=== PATIENT | female | born 1975 | race Two or more races ===

== ENCOUNTER 2017-01-24 10:06 | Inpatient (IN) ==
[2017-01-24 10:43] LABS: Apearance,Urine Slightly Hazy (Clear); Bilirubin,Urine Negative (Negative); Blood, Urine Large mg/dL (Negative); Glucose,Urine (UA) Negative (Negative); Ketones,Urine Negative (Negative); Mucus,Urine Few /LPF (Occasional); Nitrite,Urine Negative (Negative); Protein,Urine 30 MG/DL; RBC,Urine 3 /HPF (0-4); Squamous Epithelial Cell,Urine Few /HPF (0-10); Urine Color Yellow (Yellow); Urine Specific Gravity 1.017 (1.001-1.035); WBC,Urine 3 /HPF (0-6)
--- NOTE | 2017-01-24 11:05 | Emergency Department Note ---
Arrival - Arrival Chief Complaint: Abdominal / Flank Pain Stated Complaint: left abdominal pain-vomiting,headache ED Nursing Triage Note: PT C/O PAIN TO LLQ THAT RADIATES TO HER GROIN. PT REPORTS VAGINAL BLEEDING SINCE JULY. +VOMITING. PT SPEAKS [place], DIFFICULT TO OBTAIN HISTORY. Mode of Arrival: Ambulatory Limitations: Language Barrier Source: Patient, Significant other, RN Notes Reviewed Time Seen by Provider: 01/24/17 10:15 - History of Present Illness HPI Narrative: - History of Present Illness 41-year-old female presents to ED with: MD Complaint: abdominal pain left lower quadrant, vaginal bleeding 5 minutes, vomiting. Onset (ago): Vaginal bleeding started in July, pain and vomiting started last Location: Left lower quadrant with radiation into left groin Context: History similar episodes Associated Symp: Anorexia History Limited due to language barrier Date of Last Menstrual Period: IRREG Allergies/Adverse Reactions: Allergies Allergy/AdvReac Type Severity Reaction Status Date / Time No Known Allergies Allergy Verified 01/24/17 10:17 Home Medications: Home Medications Medication Instructions Recorded Confirmed Type No Known Home Medications [No 01/24/17 01/24/17 History Known Home Medications] Review of System - Review of System 12 point system: reviewed and no additional remarkable complaints except as stated - Review of System Gastrointestinal: Present: abdominal pain, vomiting Genitourinary female: Present: abnormal menses Medical,Surgical,& Family Hx - Surgical History Abdominal Surgeries: Surgical HX of: Cholecystectomy - Social History Smoking Status: Never smoker Frequency of Alcohol Use: None Type of Drug Use: None Exam Physical Examination: - General General appearance: alert, in no apparent distress - Head Head exam: Present: atraumatic, normocephalic, normal inspection - Eye Eye exam: Present: normal appearance, PERRL, EOMI - Neck Neck exam: Present: normal inspection, full ROM - Chest Chest inspection: Present: normal inspection, symmetric chest wall rise - Respiratory Respiratory exam: Present: normal lung sounds bilaterally - Cardiovascular Cardiovascular exam: Present: regular rate, normal rhythm, normal heart sounds - Abdominal Exam Abdominal exam: Present: soft, tenderness (left lower quadrant, mild to moderate palpation), normal bowel sounds. Absent: distention, guarding, organomegaly, trauma, psoas sign, heel tap sign, Restrepo's sign, mass - Rectal Exam Rectal exam: Present: deferred - Female exam ED: Present: external exam, minimal to moderate bleeding, no clots, no abnormalities - Extremities Exam Extremities exam: Present: normal inspection, full ROM. Absent: pedal edema, joint swelling, calf tenderness - Psychiatric Psychiatric exam: Present: normal affect, normal mood Vital Signs: Vital Signs Temperature 98.8 F 01/24/17 10:26 Pulse Rate 92 H 01/24/17 10:26 Respiratory Rate 16 01/24/17 10:26 Blood Pressure 101/66 01/24/17 10:26 O2 Sat by Pulse Oximetry 100 01/24/17 10:13 Course Course Narrative: After obtaining History and Physical (limited due to language barrier), nurse was able to obtain information that pt was seen by Dr. Walker in office about 2 weeks ago. His office was called and asked for records and ultrasound report. Ultrasound report from office shows: 1.3cm uterine fibroid and Left ovarian cyst. - Reevaluation(s) Time: 11:00 (External exam performed. Minimal to moderate bleeding present, no blood clots noted. No abnormalities noted.) Time: 14:00 (Patient updated on plan of care.) - Consultations Time: 13:45 (Dr. Walker notified of patient presence and status. Will admit and administer blood. Orders received.) Results - Labs CBC & BMP: 01/24/17 11:02 01/24/17 11:02 Lab Results: I have reviewed the patients labs Labs: Laboratory Tests 01/24/17 01/24/17 10:31 10:31 Urine Color Yellow Urine Appearance Slightly hazy Urine pH 5.0 Ur Specific Glidden 1.017 Urine Protein 30 Urine Glucose (UA) Negative Urine Ketones Negative Urine Blood Large Urine Nitrate Negative Urine Bilirubin Negative Urine Urobilinogen 4.0 H Urine Leukocytes Trace Urine RBC 3 Urine WBC 3 Ur Squamous Epith Cells Few Urine Mucus Few Ur Culture Indicated? Not indicated Urine Test Negative Disposition Clinical Impression: Abdominal pain, Abnormal vaginal bleeding Case discussed with: patient, patient's family Disposition: Still a Patient Condition: Guarded Time of Disposition: 13:45 (Admitted to Dr. Walker.)
[2017-01-24] MEDS ORDERED: SODIUM CHLORIDE 0.9% 1,000 ML IV STA (11:25)
[2017-01-24] MEDS ORDERED: ONDANSETRON 4 MG/2 ML VIAL IV ONE (11:25)
[2017-01-24] MEDS ORDERED: ONDANSETRON 4 MG/2 ML VIAL ONE (11:28)
[2017-01-24 11:30] LABS: Basophils % 0.3 % (0.0-0.8); Eosinophils # 0.1 10*3/uL (0.0-0.87); Hematocrit 24.2 VOL% (35.7-47.0); Immature Granulocytes % 0.6 %; Immature Granulocytes Absolute 0.04 #; Lymphocytes # 2.2 10*3/uL (1.4-4.0); Lymphocytes % 31.7 % (21.3-54.2); Mean Corpuscular HGB Conc 27.7 GM/DL (32-36); Mean Corpuscular Hemoglobin 18 PG (27-34); Mean Corpuscular Volume 63.2 FL (87-102); Mean Platelet Volume 8.8 FL (9.6-12.0); Monocytes # 0.7 10*3/uL (0.11-0.8); Monocytes % 10.1 % (1.7-12.7); NRBC # 0.02 10*3/uL; Neutrophils # 3.8 10*3/uL (1.4-7.4); Neutrophils % 55.3 % (38.7-73.9); Platelet Count 428 T/CUMM (130-400); Red Blood Count 3.83 MC/CUMM (3.8-5.5); Red Cell Distribution Width 17.4 % (9.3-17.3); White Blood Count 6.9 T/CUMM (4-12)
[2017-01-24 11:31] LABS: Hemoglobin 6.7 GM/DL (12.0-16.0)
[2017-01-24 11:33] LABS: Albumin 3.2 G/DL (3.4-5.0); Bilirubin,Total 0.7 MG/DL (0.2-1.0); Calcium 8.1 MG/DL (8.5-10.1); Osmolality,Calculated 278.4 MOS/KG (273-304); Potassium 3.8 MMOL/L (3.5-5.1); Total Protein 6.6 G/DL (6.4-8.3)
[2017-01-24 12:16] LABS: Elliptocytes Few; Hypochromasia 1+; Microcytosis 1+
[2017-01-24] MEDS ORDERED: SODIUM CHLORIDE 0.9% 250 ML IV PRN (13:52)
[2017-01-24] MEDS ORDERED: ACETAMINOPHEN 325 MG TABLET PO PRN (13:55)
[2017-01-24] MEDS ORDERED: MAGNESIUM HYDROXIDE SUSP 30 ML UDCUP PO PRN (13:55)
[2017-01-24] MEDS ORDERED: BISACODYL 10 MG SUPP RECTAL PRN (13:55)
[2017-01-24] MEDS ORDERED: IBUPROFEN 800 MG TABLET PO PRN (13:55)
[2017-01-24] MEDS ORDERED: oxyCODONE/ACETAMINOPHEN 5-325 MG TABLET PO PRN (16:00)
[2017-01-24] MEDS ORDERED: oxyCODONE/ACETAMINOPHEN 5-325 MG TABLET ONE (16:02)
[2017-01-24] MEDS ORDERED: SODIUM CHLORIDE 0.9% 1,000 ML IV PRN (16:14)
[2017-01-24] MEDS: LACTATED RINGERS 1,000 ML IV SCH (16:24)
[2017-01-24] MEDS: ONDANSETRON 4 MG/2 ML VIAL IV PRN (18:20)
[2017-01-24] MEDS ORDERED: MEPERIDINE 25 MG/1 ML VIAL IV PRN (18:48)
[2017-01-24] MEDS ORDERED: PROMETHAZINE 25 MG/1 ML VIAL ONE (18:56)
--- NOTE | 2017-01-24 18:58 | OB/GYN History & Physical ---
History of Present Illness Chief complaint: Dysmenorrhea, anemia, emesis History of present illness: Ms. Diaz is a 41 year old female 41-year-old female with known history of uterine fibroids, disc menorrhea, dysfunctional uterine bleeding, and pelvic pain. Admitted through the emergency room with nausea vomiting, her H&H in the admission was 6 and 24. Patient at this time is admitted for IV fluids transfusion of packed RBCs, and analgesic. Risks benefits were thoroughly discussed patient is in full agreement Home Medications Medication Instructions Recorded Confirmed Type No Known Home Medications [No 01/24/17 01/24/17 History Known Home Medications] Allergies Allergy/AdvReac Type Severity Reaction Status Date / Time No Known Allergies Allergy Verified 01/24/17 10:17 Medical,Surgical,& Family Hx - Medical History Psychological: History of: Anxiety Disorders, Depression Reproductive: History of: Reproductive Problems (DUB) - Surgical History Abdominal Surgeries: Surgical HX of: Cholecystectomy Reproductive Surgeries: Surgical HX of;: Section - Family History Family History: Reports;: Family Diabetes (father), Family Psychiatric Problems (mother- anxiety and depression) - Social History Smoking Status: Never smoker Frequency of Alcohol Use: None 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 - Constitutional Vitals: Vital Signs Temp Pulse Pulse Resp BP BP Pulse Ox 01/24/17 18:49 96.3 F L 76 20 95/61 99 01/24/17 18:42 97.6 F 77 20 110/66 99 01/24/17 17:57 97.2 F L 74 18 107/73 100 01/24/17 16:57 97.6 F 83 20 97/54 99 01/24/17 16:27 96.8 F L 86 20 97/60 100 01/24/17 16:22 96.8 F L 84 20 103/64 100 01/24/17 16:17 97.5 F L 82 20 100/57 100 01/24/17 16:10 96.5 F L 82 20 101/61 98 01/24/17 14:45 97.4 F L 81 20 98/57 01/24/17 10:26 98.8 F 92 H 16 101/66 01/24/17 10:13 98.8 F 92 H 16 101/66 100 Pulse Ox 01/24/17 18:49 01/24/17 18:42 01/24/17 17:57 01/24/17 16:57 01/24/17 16:27 01/24/17 16:22 01/24/17 16:17 01/24/17 16:10 01/24/17 14:45 100 01/24/17 10:26 01/24/17 10:13 General appearance: no acute distress - Head Head exam: Present: normal inspection - Eye Eye exam: Present: EOMI Pupils: Present: WEST - ENT ENT exam: Present: normal exam - Neck Neck exam: Present: normal inspection - Respiratory Respiratory exam: Present: clear to auscultation bilaterally - Breast Breasts: as per HPI Menstruation: as per HPI - Cardiovascular Cardiovascular exam: Present: regular rate and rhythm - GI/Abdominal GI/Abdominal exam: Present: normal bowel sounds, tenderness, soft - Extremities Exam Extremities exam: Present: normal inspection - Back Exam Back exam: Present: normal inspection - Neurological Exam Neurological exam: Present: alert - Psychiatric Psychiatric exam: Present: normal affect - Skin Skin exam: Present: normal color Assessment and Plan (1) Anemia Status: Acute Current Visit: Yes (2) Dysfunctional uterine bleeding Status: Acute Current Visit: Yes (3) Uterine fibroid Status: Acute Assessment and plan: We will address the anemia, discomfort, possibility of a SERENITY/BSO in the future. Current Visit: Yes Results - Labs CBC & BMP: 01/24/17 11:02 01/24/17 11:02
[2017-01-24] MEDS ORDERED: PROMETHAZINE 25 MG/1 ML VIAL IM PRN (19:00)
[2017-01-24] MEDS: DOCUSATE SODIUM 100 MG CAPSULE PO SCH (20:59)
[2017-01-25] MEDS: LACTATED RINGERS 1,000 ML IV SCH ×2 (00:33→11:03)
[2017-01-25 01:30] LABS: Hematocrit 30.8 VOL% (35.7-47.0); Hemoglobin 9.2 GM/DL (12.0-16.0)
[2017-01-25] MEDS: ONDANSETRON 4 MG/2 ML VIAL IV PRN (08:24)
[2017-01-25] MEDS: DOCUSATE SODIUM 100 MG CAPSULE PO SCH ×2 (08:41→20:50)
[2017-01-25] MEDS ORDERED: SODIUM CHLORIDE 0.9% 250 ML IV PRN (14:33)
--- NOTE | 2017-01-25 19:14 | Progress Note ---
Assessment and Plan (1) Anemia Status: Acute Current Visit: Yes (2) Dysfunctional uterine bleeding Status: Acute Current Visit: Yes (3) Uterine fibroid Status: Acute Assessment and plan: We will address the anemia, discomfort, possibility of a SERENITY/BSO in the future. Current Visit: Yes Family Medicine PN Sub Interval history: Second day after receiving transfusion of packed RBCs. Patient received a total of 4 units. Patient is more alert energetic, she does complain of abdominal discomfort approximately a 5 on a 10 scale. Vaginal bleeding is minimal. We will continue to observe over the next 24 hours. Possibility of discharge and have this patient return to for a total abdominal hysterectomy. Risks benefits were thoroughly discussed and she is in full agreement. Exam (Progress Note) - Constitutional Vitals: Period Temp Pulse Resp BP Sys/Ramos Pulse Ox Last 24 Hr 96.5 F-98.5 F 65-93 18-20 90-111/53-79 96-100 Results - Labs CBC & BMP: 01/25/17 01:23 01/24/17 11:02 Specialty Discharge - Follow Up or Referrals
[2017-01-25] MEDS ORDERED: MEPERIDINE 50 MG/1 ML VIAL IV PRN (19:53)
[2017-01-25] MEDS: FERROUS SULFATE 325 MG TABLET PO SCH (20:50)
[2017-01-25 21:01] LABS: Basophils % 0.5 % (0.0-0.8); Eosinophils # 0.2 10*3/uL (0.0-0.87); Eosinophils % 2.6 % (0.00-10.9); Hematocrit 33.2 VOL% (35.7-47.0); Hemoglobin 10.1 GM/DL (12.0-16.0); Immature Granulocytes % 0.2 %; Immature Granulocytes Absolute 0.02 #; Lymphocytes # 2.4 10*3/uL (1.4-4.0); Lymphocytes % 27.9 % (21.3-54.2); Mean Corpuscular HGB Conc 30.4 GM/DL (32-36); Mean Corpuscular Hemoglobin 22 PG (27-34); Mean Corpuscular Volume 71.1 FL (87-102); Mean Platelet Volume 8.8 FL (9.6-12.0); Monocytes # 0.9 10*3/uL (0.11-0.8); Monocytes % 10.6 % (1.7-12.7); NRBC # 0.02 10*3/uL; Neutrophils % 58.2 % (38.7-73.9); Platelet Count 333 T/CUMM (130-400); Red Blood Count 4.67 MC/CUMM (3.8-5.5); Red Cell Distribution Width 22.5 % (9.3-17.3); White Blood Count 8.5 T/CUMM (4-12)
[2017-01-26] MEDS: DOCUSATE SODIUM 100 MG CAPSULE PO SCH (10:04)
[2017-01-26] MEDS: FERROUS SULFATE 325 MG TABLET PO SCH (10:04)
[2017-01-26 11:44] VITALS: BP 104/64
--- NOTE | 2017-01-26 14:22 | Discharge Summary ---
Hospital Course - Hospital Course Hospital Course: Patient admitted with anemia and severe abdominal pain and discomfort. This is her third hospital day. She will be discharged today and follow my office in approximately 1 week where at that point time she will make some arrangements to be scheduled for SERENITY and BSO secondary to uterine fibroids, abdominal pain, and also dysfunction bleeding. She will be discharged with Percocet as well as iron therapy Diagnosis - Discharge Diagnosis (1) Anemia Status: Acute (2) Dysfunctional uterine bleeding Status: Acute (3) Uterine fibroid Status: Acute Specialty Discharge - Follow Up or Referrals Follow up with: Germán Walker MD [Physician] - 02/01/17 2:45 pm Discharge Plan - Discharge Data Condition at Discharge: Stable Discharge Diet: advance to your usual diet Activity: resume usual activities as tolerated, no lifting Hygiene: may shower, may tub bathe Driving: no restrictions Contact your physician if you experience:: fever over 101, Shortness of breath, Bleeding - Discharge Medications New Ferrous Sulfate Tab [Feosol Original Tab] 325 mg PO BID #60 tablet oxyCODONE/ACETAMINOPHEN 5-325 [Percocet 5-325] 2 tablet PO Q6H PRN #30 tablet PRN Reason: Pain Moderate (4-7) - Follow Up or Referral Follow Up: Germán Walker MD [Physician] - 1 Week - Forms/Instructions Instructions: Dysfunctional Uterine Bleeding (DC) Exam - Constitutional Vitals: Period Temp Pulse Resp BP Sys/Ramos Pulse Ox Last 24 Hr 96.7 F-98.0 F 64-93 16-20 91-111/52-79 95-100 Discharge Results Labs on day of discharge: Labs from last 24 hours 01/25/17 01/25/17 01/24/17 Unknown 20:55 13:52 WBC 8.5 RBC 4.67 D Hgb 10.1 L Hct 33.2 L MCV 71.1 L MCH 22 L MCHC 30.4 L RDW 22.5 H Plt Count 333 D MPV 8.8 L Neut % (Auto) 58.2 Lymph % (Auto) 27.9 Maverick % (Auto) 10.6 Eos % (Auto) 2.6 Baso % (Auto) 0.5 Neut # (Auto) 5.0 Lymph # (Auto) 2.4 Maverick # (Auto) 0.9 H Eos # (Auto) 0.2 Baso # (Auto) 0.0 Immature Gran % 0.2 Nucleated RBC % 0.2 Immature Gran # 0.02 Nucleated RBCs # 0.02 Blood Type Cancelled Antibody Screen Cancelled Crossmatch See Detail See Detail Blood Bank Comment Cancelled DS: Provider Date of admission: 01/24/17 13:55 Primary care physician: . No PCP Attending physician on admission: Germán Walker MD Consults: 01/24/17 13:55 Consult to Case Mgmt/Social Srvs [CONS] Routine Reason for Case Mgmt/Social Srvs: Other Consult Comment: no insurance 01/24/17 16:17 Consult to Dietitian [CONS] Routine Reason for Dietitian: Other Consult Comment: lost weight- admission assessment question Discharging clinician: Germán Walker MD
== END 2017-01-26 14:50 | disposition home or self-care (01) | DRG 812 ==
LOC: N.ED 10:06 → N.EDINP 13:44 → N.OB 14:28
PROVIDERS: ADMIT Obstetrics & Gynecology; ATTEND Obstetrics & Gynecology

== ENCOUNTER 2017-02-05 13:53 | Inpatient (IN) ==
[2017-02-05] MEDS ORDERED: ONDANSETRON 4 MG/2 ML VIAL IV PRN (14:27)
[2017-02-05] MEDS ORDERED: oxyCODONE/ACETAMINOPHEN 5-325 MG TABLET PO PRN (14:27)
[2017-02-05] MEDS ORDERED: MEPERIDINE 50 MG/1 ML VIAL IV PRN (14:27)
[2017-02-05] MEDS: SODIUM CHLORIDE 0.9% 1,000 ML IV SCH ×2 (15:05→23:46)
[2017-02-05 15:16] LABS: Basophils # 0.1 10*3/uL (0.0-0.2); Basophils % 0.9 % (0.0-0.8); Eosinophils # 0.2 10*3/uL (0.0-0.87); Eosinophils % 2.9 % (0.00-10.9); Hematocrit 33.9 VOL% (35.7-47.0); Hemoglobin 10.2 GM/DL (12.0-16.0); Immature Granulocytes % 0.4 %; Immature Granulocytes Absolute 0.03 #; Lymphocytes # 2.8 10*3/uL (1.4-4.0); Lymphocytes % 40.5 % (21.3-54.2); Mean Corpuscular HGB Conc 30.1 GM/DL (32-36); Mean Corpuscular Hemoglobin 22 PG (27-34); Mean Corpuscular Volume 73.5 FL (87-102); Mean Platelet Volume 9.5 FL (9.6-12.0); Monocytes # 0.7 10*3/uL (0.11-0.8); Monocytes % 9.6 % (1.7-12.7); Neutrophils # 3.2 10*3/uL (1.4-7.4); Neutrophils % 45.7 % (38.7-73.9); Platelet Count 338 T/CUMM (130-400); Red Blood Count 4.61 MC/CUMM (3.8-5.5); Red Cell Distribution Width 24.7 % (9.3-17.3)
[2017-02-05 15:49] LABS: Albumin 3.2 G/DL (3.4-5.0); Bilirubin,Total 0.6 MG/DL (0.2-1.0); Calcium 8.2 MG/DL (8.5-10.1); Osmolality,Calculated 282.1 MOS/KG (273-304); Potassium 3.6 MMOL/L (3.5-5.1); Total Protein 6.4 G/DL (6.4-8.3)
--- NOTE | 2017-02-05 17:45 | OB/GYN History & Physical ---
History of Present Illness Chief complaint: D UB History of present illness: Ms. Diaz is a 41 year old female 41-year-old female most recently discharged from the hospital with severe anemia. Patient patient received approximately 4 units of packed RBCs. Ultrasound of the pelvis demonstrated multiple uterine fibroids. Since her discharge from the hospital over the last week this patient's continued to bleed and have increasing abdominal pain and discomfort. Patient is complaining of weakness, abdominal pain, and nausea with associated emesis. In light of this continued multiple symptoms of pain, dysfunction bleeding, known uterine fibroids, and anemia she is being prepared for SERENITY and BSO. Risks and benefits were thoroughly discussed and she is in full agreement. Home Medications Medication Instructions Recorded Confirmed Type Ferrous Sulfate Tab [Feosol 325 mg PO BID #60 tablet 01/26/17 02/05/17 Rx Original Tab] oxyCODONE/ACETAMINOPHEN 5-325 2 tablet PO Q6H PRN #30 tablet 01/26/17 02/05/17 Rx [Percocet 5-325] Allergies Allergy/AdvReac Type Severity Reaction Status Date / Time No Known Allergies Allergy Verified 01/24/17 10:17 Medical,Surgical,& Family Hx - Medical History Psychological: History of: Anxiety Disorders, Depression Reproductive: History of: Reproductive Problems (DUB) - Surgical History Abdominal Surgeries: Surgical HX of: Cholecystectomy Reproductive Surgeries: Surgical HX of;: Section - Family History Family History: Reports;: Family Diabetes (father), Family Psychiatric Problems (mother- anxiety and depression) - Social History Smoking Status: Never smoker 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 - Constitutional Vitals: Vital Signs Temp Pulse Resp BP Pulse Ox 02/05/17 16:00 97.4 F L 83 18 93/59 99 02/05/17 14:15 97.5 F L 86 18 94/61 99 General appearance: mild distress - Head Head exam: Present: normal inspection - Eye Eye exam: Present: EOMI Pupils: Present: WEST - ENT ENT exam: Present: normal exam - Neck Neck exam: Present: normal inspection - Respiratory Respiratory exam: Present: clear to auscultation bilaterally - Breast Breasts: as per HPI Menstruation: as per HPI - Cardiovascular Cardiovascular exam: Present: regular rate and rhythm, tachycardia - GI/Abdominal GI/Abdominal exam: Present: tenderness, other (Palpable enlargement with associated tenderness) - Extremities Exam Extremities exam: Present: normal inspection - Back Exam Back exam: Present: normal inspection - Neurological Exam Neurological exam: Present: alert, oriented X3 - Psychiatric Psychiatric exam: Present: agitated, anxious - Skin Skin exam: Present: normal color Assessment and Plan (1) Anemia Status: Acute Current Visit: No (2) Uterine fibroid Status: Acute Current Visit: No (3) Dysfunctional uterine bleeding Status: Acute Current Visit: No (4) Abdominal pain Status: Acute Assessment and plan: Dysfunction uterine bleeding, pelvic pain, anemia, known uterine fibroids, will plan on a SERENITY/BSO risks benefits were thoroughly discussed patient full agreement. Current Visit: No Results - Labs CBC & BMP: 02/05/17 14:40 02/05/17 14:40
[2017-02-05] MEDS ORDERED: ceFAZolin 2,000 MG in PREMIX 1 EACH IV ONE (17:49)
--- NOTE | 2017-02-05 18:41 | XRay Report ---
Exam: XR chest 2V Date: 02/05/2017 5:49 PM Indication: Respiratory evaluation Preop hysterectomy Comparison: None Technical: PA lateral Findings: Heart is normal in size. No obvious infiltrate. Mild interstitial thickening the perihilar regions. No defined effusions. The bony structures reveal anterolateral marginal osteophytes. Prior cholecystectomy clips are present. Impression: 1. Mild interstitial thickening in the perihilar regions without consolidating infiltrate 2. Previous cholecystectomy. PROCEDURE INTERPRETED AT [facility] DEPARTMENT OF RADIOLOGY Final Report Signed by: Dr. Anthony Davila
[2017-02-05 19:46] LABS: Poikilocytosis 1+
[2017-02-05 19:47] LABS: Hypochromasia 1+; Ovalocytes Few; Platelet Estimate Normal; Tear Drop Cells Few
[2017-02-06] MEDS ORDERED: MICROFIBRILLAR COLLAGEN POWDER 1 GM CAN TOP ONE (06:42)
[2017-02-06] MEDS ORDERED: ceFAZolin 2,000 MG in PREMIX 1 EACH IV ONE (07:00)
--- NOTE | 2017-02-06 07:18 | EKG Report ---
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
[2017-02-06] MEDS ORDERED: LACTATED RINGERS 1,000 ML IV SCH (08:30)
--- NOTE | 2017-02-06 11:03 | Operative Note ---
Date of procedure: 02/06/17 Procedure: Preoperative diagnosis; anemia, dysfunction uterine bleeding, severe pelvic pain , ovarian cyst Postoperative diagnosis: Same, severe pelvic adhesion Anesthesia: General. endotracheal anesthesia Estimated blood loss: [] 300 cc Surgeon: Dr. Walker Findings: [] Pelvic adhesions, omental adhesions, uterine ovarian adhesions, 6 cm ovarian cyst, uterine fibroids Procedure: SERENITY/BSO, lysis of adhesions The risks benefits and indications and alternatives the procedure were reviewed with the patient and informed consent was obtained. The patient was taken to the operating room with IV running and a Glover catheter in place. Patient was placed in supine position, given general anesthesia, prepped and draped in the usual sterile fashion. An abdominal incision was made approximately 2 cm above the symphysis pubis and extended sharply to the rectus fascia. The fascia was then excised bilaterally with the curved Cooper scissors. And the muscles of the anterior abdominal wall were in the midline by sharp and blunt dissection. Peritoneum was grasped between 2 pickups, elevated and entered sharply with the scalpel. The pelvis was examined with the findings noted above. A abdominal retractor was placed into the incision and the bowel packed away with moist laparotomy sponges. [] A tenaculum was placed on the cornea and used for retraction. The round ligaments on both sides were clamped, transected and suture ligated with 0 Vicryl the anterior leaf of the broad ligament was incised along the bladder was reflection to the midline from both sides. The bladder was then gently dissected off the lower uterine segment and the cervix with a sponge stick. The infundibulopelvic ligaments on both sides were then doubly clamped, transected and suture ligated with 0 Vicryl. Hemostasis was visualized. The uterine arteries were skeletonized bilaterally, clamped with Amarjit clamps, transected and suture ligated with 0 Vicryl and, hemostasis was assured. The uterosacral ligament were clamped on both sides, transected, and suture ligated in a similar fashion the cervix and uterus were amputated with cautery. The vaginal cuff angles were closed with [id number] stitches of 0 Vicryl and were transfixed to the ipsilateral cardinal and uterosacral ligaments. The remainder of the vaginal cuff was closed with a series of interrupted 0 Vicryl [id number] sutures hemostasis was assured. The ureters were identified bilaterally were well within normal limits the pelvis was irrigated copiously with warm normal saline. All laparotomy sponges and instruments were removed from the abdomen. The fascia was closed with running 0 Vicryl, and hemostasis was assured the skin was closed with moriah. Sponges, lap, needle and instrument counts were correct -2. The patient was extubated in the operating room was taken to the PAC unit, awake and in stable condition.. Surgeon / Physician: Germán Walker Results - Labs CBC & BMP: 02/05/17 14:40 02/05/17 14:40 Discharge Plan - Discharge Medications No Action Ferrous Sulfate Tab [Feosol Original Tab] 325 mg PO BID #60 tablet oxyCODONE/ACETAMINOPHEN 5-325 [Percocet 5-325] 2 tablet PO Q6H PRN #30 tablet PRN Reason: Pain Moderate (4-7) - Follow Up or Referral - Forms/Instructions
[2017-02-06] MEDS ORDERED: ACETAMINOPHEN 325 MG TABLET PO PRN (11:04)
[2017-02-06] MEDS ORDERED: BISACODYL 10 MG SUPP RECTAL PRN (11:04)
[2017-02-06] MEDS ORDERED: BENZOCAINE/MENTHOL LOZENGE 18/BOX PO PRN (11:04)
[2017-02-06] MEDS ORDERED: MEPERIDINE 50 MG/1 ML VIAL IV PRN (11:06)
[2017-02-06] MEDS: HYDROmorphone 2 MG/1 ML VIAL IV PRN ×4 (11:24→11:49)
[2017-02-06] MEDS ORDERED: ONDANSETRON 4 MG/2 ML VIAL ONE ×2 (11:25→11:28)
[2017-02-06] MEDS ORDERED: HYDROmorphone 2 MG/1 ML VIAL ONE ×2 (11:25→12:47)
[2017-02-06 11:26] LABS: Apearance,Urine CLEAR (Clear); Bacteria,Urine Occasional /HPF (Few); Bilirubin,Urine Negative (Negative); Blood, Urine Negative (Negative); Glucose,Urine (UA) Negative (Negative); Ketones,Urine Negative (Negative); Mucus,Urine Occasional /LPF (Occasional); Nitrite,Urine Negative (Negative); Protein,Urine Negative; RBC,Urine 1 /HPF (0-4); Squamous Epithelial Cell,Urine Occasional /HPF (0-10); Urine Color Yellow (Yellow); Urine Specific Gravity 1.012 (1.001-1.035); Urine Urobilinogen < 2.0 EU/DL (0.2-1.0); WBC,Urine <1 /HPF (0-6)
[2017-02-06] MEDS ORDERED: LIDOCAINE 2% TOP JELLY 5 ML TUBE TOP ONE (11:27)
[2017-02-06] MEDS ORDERED: PROPOFOL 200 MG/20 ML VIAL IV ONE (11:27)
[2017-02-06] MEDS ORDERED: ACETAMINOPHEN 1,000 MG/100 ML VIAL IV ONE (11:28)
[2017-02-06] MEDS ORDERED: KETOROLAC 30 MG/1 ML VIAL ONE (11:28)
[2017-02-06] MEDS ORDERED: MIDAZOLAM 2 MG/2 ML VIAL ONE (11:28)
[2017-02-06] MEDS ORDERED: GLYCOPYRROLATE 0.4 MG/2 ML VIAL ONE (11:28)
[2017-02-06] MEDS ORDERED: NEOSTIGMINE 10 MG/10 ML VIAL ONE (11:28)
[2017-02-06] MEDS ORDERED: SEVOFLURANE 1 UNIT/15 MINUTE INH ONE (11:29)
[2017-02-06] MEDS ORDERED: ROCURONIUM 100 MG/10 ML VIAL IV ONE (11:29)
[2017-02-06] MEDS ORDERED: LACTATED RINGERS 1,000 ML IV ONE (11:29)
[2017-02-06] MEDS ORDERED: ONDANSETRON 4 MG/2 ML VIAL IV PRN (11:37)
--- NOTE | 2017-02-06 12:16 | Anesthesia Post-Op ---
Anesthesia Post OP - Post Ansesthetic Evaluation Patient seen in post op: Yes Resp: within normal limits CV: within normal limits Mental: within normal limits Temp: within normal limits [id number]: within normal limits Nausea and Vomiting: within normal limits Pain: within normal limits
[2017-02-06] MEDS ORDERED: HYDROmorphone 2 MG/1 ML VIAL IV PRN (12:37)
[2017-02-06] MEDS ORDERED: HYDROmorphone 2 MG/1 ML VIAL IV ONE (12:43)
[2017-02-06] MEDS ORDERED: NALOXONE 0.4 MG/ML VIAL IV PRN (13:55)
[2017-02-06] MEDS ORDERED: HYDROmorphone PCA 30 MG/30 ML SYRINGE IV SCH (14:00)
[2017-02-06] MEDS: ONDANSETRON 4 MG/2 ML VIAL IV PRN (17:05)
[2017-02-06] MEDS: PROMETHAZINE 25 MG/1 ML VIAL IM PRN (17:55)
[2017-02-06] MEDS: LACTATED RINGERS 1,000 ML IV SCH (18:51)
[2017-02-06 20:02] LABS: Basophils % 0.2 % (0.0-0.8); Hematocrit 30.7 VOL% (35.7-47.0); Hemoglobin 9.3 GM/DL (12.0-16.0); Immature Granulocytes % 0.5 %; Immature Granulocytes Absolute 0.08 #; Lymphocytes # 0.7 10*3/uL (1.4-4.0); Lymphocytes % 4.1 % (21.3-54.2); Mean Corpuscular HGB Conc 30.3 GM/DL (32-36); Mean Corpuscular Hemoglobin 23 PG (27-34); Mean Corpuscular Volume 74.5 FL (87-102); Mean Platelet Volume 9.7 FL (9.6-12.0); Monocytes # 0.9 10*3/uL (0.11-0.8); Monocytes % 5.2 % (1.7-12.7); Platelet Count 350 T/CUMM (130-400); Red Blood Count 4.12 MC/CUMM (3.8-5.5); Red Cell Distribution Width 24.4 % (9.3-17.3); White Blood Count 17.7 T/CUMM (4-12)
[2017-02-07] MEDS: LACTATED RINGERS 1,000 ML IV SCH (02:29)
[2017-02-07 05:42] LABS: Basophils % 0.2 % (0.0-0.8); Eosinophils % 0.3 % (0.00-10.9); Hematocrit 28.4 VOL% (35.7-47.0); Hemoglobin 8.4 GM/DL (12.0-16.0); Immature Granulocytes % 0.5 %; Immature Granulocytes Absolute 0.06 #; Lymphocytes # 2.4 10*3/uL (1.4-4.0); Lymphocytes % 18.6 % (21.3-54.2); Mean Corpuscular HGB Conc 29.6 GM/DL (32-36); Mean Corpuscular Hemoglobin 22 PG (27-34); Mean Corpuscular Volume 74.3 FL (87-102); Mean Platelet Volume 9.7 FL (9.6-12.0); Monocytes # 1.3 10*3/uL (0.11-0.8); Monocytes % 10.4 % (1.7-12.7); Neutrophils # 8.9 10*3/uL (1.4-7.4); Platelet Count 332 T/CUMM (130-400); Red Blood Count 3.82 MC/CUMM (3.8-5.5); Red Cell Distribution Width 24.6 % (9.3-17.3); White Blood Count 12.7 T/CUMM (4-12)
[2017-02-07 06:03] LABS: Hypochromasia 1+; Microcytosis Slight; Ovalocytes Slight; Platelet Estimate Adequate
[2017-02-07] MEDS: MAGNESIUM HYDROXIDE SUSP 30 ML UDCUP PO PRN (09:45)
[2017-02-07] MEDS: DOCUSATE SODIUM 100 MG CAPSULE PO PRN ×2 (09:45→22:00)
[2017-02-07] MEDS: ONDANSETRON 4 MG/2 ML VIAL IV PRN (11:00)
--- NOTE | 2017-02-07 11:21 | Pathology Report from [facility] ---
[facility] – [place] ACCESSION # : [id number] PATIENT NAME : Radha Diaz ORDERING DR : JACQUIE BLOOM MD CLINICAL HX: DUB POST-OP DX: Same SPECIMEN INFO: Uterus, cervix, bilateral tubes and ovaries GROSS DESCRIPTION: Received in formalin labeled RADAH DIAZ is a 180 gm uterus with cervix measuring 12.0 x 6.5 x 4.5 cm. The serosa is red wolff with adhesions present. The cervix measures 4.2 cm. The cervical os measures 0.7 cm. The endocervical canal is wolff and patent. The endometrial cavity is hyperemic with mucosal thickness of 0.3 cm. Sectioning reveals several white submucosal intramural nodules measuring up to 2.2 cm. The ovaries and tubes are received separately in the specimen container. The first ovary measures 5.8 x 5.5 cm and consists primarily of a large cyst containing pale yellow serous fluid. The lining of the cyst is smooth with no excrescences or other lesions appreciated. The adjacent fallopian tube is fimbriated, has been previously transected and measures 4.3 x 0.8 cm. The second ovary measures 2.6 x 2.7 cm. Sectioning reveals multiple clear fluid cysts measuring up to 0.8 cm. The adjacent fallopian tube is fimbriated, has been previously transected and measures 3.8 x 0.8 cm. Sections submitted A-Cervix, B&C-Endomyometrium, D-Posterior uterine serosa, serosal adhesions, nodules, E-1st ovary and tube, F-2nd ovary and tube. DIAGNOSIS FOR RADHA DIAZ: UTERUS, TUBES & OVARIES, HYSTERECTOMY: Chronic cervicitis with squamous metaplasia. Proliferative endometrium. Adenomyosis. Leiomyomata. Bilateral subcortical follicular cysts of ovaries. Unremarkable fallopian tubes. COLLECTED DATE: 02/06/2017 [facility] REPORT DATE: 02/07/2017 ELECTRONICALLY SIGNED BY: Deonte Parisi III, M.D. 02/07/2017 - 9:54:12 [facility]ITAL[facility]
--- NOTE | 2017-02-07 13:47 | Progress Note ---
Assessment and Plan (1) Anemia Status: Acute Current Visit: No (2) Uterine fibroid Status: Acute Current Visit: No (3) Dysfunctional uterine bleeding Status: Acute Current Visit: No (4) Abdominal pain Status: Acute Assessment and plan: Dysfunction uterine bleeding, pelvic pain, anemia, known uterine fibroids, will plan on a SERENITY/BSO risks benefits were thoroughly discussed patient full agreement. Current Visit: No Family Medicine PN Sub Interval history: Postop day #1 Status post SERENITY/BSO, secondary to uterine fibroids dysfunction bleeding, anemia , severe pain, Incision sites intact, slightly gassy, however patient is tolerating this discomfort well. Extremities well with no limits neurologic grossly intact No excessive vaginal bleeding at this time. Assessment plan We will continue with present therapy thanks for dictation Exam (Progress Note) - Constitutional Vitals: Period Temp Pulse Resp BP Sys/Ramos Pulse Ox Last 24 Hr 97.7 F-98.7 F 78-95 16-20 89-115/52-65 95-99 Results - Labs CBC & BMP: 02/07/17 05:27 02/05/17 14:40 Quality Measures - VTE Contraindication to Pharmacological VTE Prophylaxis: Clinical assessment deems Pt at low risk, no prophalaxis needed
[2017-02-07] MEDS ORDERED: METOCLOPRAMIDE 10 MG/2 ML VIAL IV SCH (14:00)
[2017-02-07] MEDS: IBUPROFEN 800 MG TABLET PO PRN ×2 (14:59→23:50)
[2017-02-07] MEDS: PROMETHAZINE 25 MG/1 ML VIAL IM PRN (22:55)
[2017-02-07] MEDS: SIMETHICONE CHEW 80 MG TABLET PO PRN (23:30)
[2017-02-07] MEDS: METOCLOPRAMIDE 10 MG TABLET PO SCH (23:30)
[2017-02-08] MEDS ORDERED: SODIUM PHOSPHATE ENEMA 133 ML BOTTLE RECTAL ONE (08:23)
[2017-02-08] MEDS: METOCLOPRAMIDE 10 MG TABLET PO SCH ×2 (08:41→15:00)
[2017-02-08] MEDS: DOCUSATE SODIUM 100 MG CAPSULE PO PRN (08:41)
[2017-02-08] MEDS: SIMETHICONE CHEW 80 MG TABLET PO PRN (08:42)
[2017-02-08] MEDS: MAGNESIUM HYDROXIDE SUSP 30 ML UDCUP PO PRN (08:42)
[2017-02-08] MEDS: IBUPROFEN 800 MG TABLET PO PRN (11:45)
[2017-02-08] MEDS: PROMETHAZINE 25 MG/1 ML VIAL IM PRN ×2 (12:09→21:05)
[2017-02-08] MEDS ORDERED: oxyCODONE/ACETAMINOPHEN 5-325 MG TABLET PO PRN (12:10)
[2017-02-08] MEDS: LACTATED RINGERS 1,000 ML IV SCH (16:34)
[2017-02-08] MEDS: METOCLOPRAMIDE 10 MG/2 ML VIAL IV SCH (22:59)
[2017-02-09] MEDS: LACTATED RINGERS 1,000 ML IV SCH ×2 (00:06→06:24)
[2017-02-09] MEDS: ONDANSETRON 4 MG/2 ML VIAL IV PRN (01:14)
[2017-02-09] MEDS: PROMETHAZINE 25 MG/1 ML VIAL IM PRN (04:22)
[2017-02-09] MEDS: METOCLOPRAMIDE 10 MG/2 ML VIAL IV SCH ×2 (06:23→15:30)
--- NOTE | 2017-02-09 07:52 | XRay Report ---
Portable chest Date: 02/09/2017 Clinical history: Nasogastric tube insertion Comparison: 02/05/2017 Technique: Portable AP sitting chest Findings: The tip of the nasogastric tube projects in satisfactory position in the stomach. Progressive parenchymal findings at the lung bases with small left pleural effusion. Prior cholecystectomy with mild gaseous distention of the bowel. Impression: Nasogastric tube in satisfactory position. Progressive atelectasis/infiltration at the lung bases, especially the left with small left pleural effusion. Prior cholecystectomy with probable mild ileus. PROCEDURE INTERPRETED AT [facility] DEPARTMENT OF RADIOLOGY Final Report Signed by: Dr. Kailee Martinez
--- NOTE | 2017-02-09 10:02 | XRay Report ---
Exam: XR chest/upper abdomen 1V portable Date: 02/09/2017 8:39 AM Indication: Nasogastric tube placement Comparison: 02/09/2017 Technical: AP portable Findings: Nasogastric tube is present the distal tip is in the fundus of the stomach along the greater curvature area. Low volume effusions are present with mild cardiac enlargement. The exam is no pneumothorax. The liver spleen and renal shadows are not well seen. Some reactive bowel in the upper abdomen. Impression: 1. Nasogastric tube in the stomach along the greater curvature fundus junction 2. At least change in the basilar regions right greater than left PROCEDURE INTERPRETED AT [facility] DEPARTMENT OF RADIOLOGY Final Report Signed by: Dr. Anthony Davila
--- NOTE | 2017-02-09 11:01 | Progress Note ---
Assessment and Plan (1) Anemia Status: Acute Current Visit: No (2) Uterine fibroid Status: Acute Current Visit: No (3) Dysfunctional uterine bleeding Status: Acute Current Visit: No (4) Abdominal pain Status: Acute Assessment and plan: Dysfunction uterine bleeding, pelvic pain, anemia, known uterine fibroids, will plan on a SERENITY/BSO risks benefits were thoroughly discussed patient full agreement. Current Visit: No Family Medicine PN Sub Interval history: Postop day #3 Status post SERENITY/BSO secondary to pelvic adhesions, multiple uterine fibroids, dysfunctional bleeding, anemia. Abdomen is soft today she has had multiple bowel movements and several bouts of emesis. Presently her abdomen is soft quiet bowel sounds but she does have an NG tube at low continuous suction. She feels much better however will continue to observe her over the next 24 hours and then possibly discharge her NG tube advance her diet and at that time will determine if this patient is ready to be discharged. Exam (Progress Note) - Constitutional Vitals: Period Temp Pulse Resp BP Sys/Ramos Pulse Ox Last 24 Hr 97.7 F-98.9 F 97-108 16-20 96-113/51-61 88-99 Results - Labs CBC & BMP: 02/07/17 05:27 02/05/17 14:40 Quality Measures - VTE Contraindication to Pharmacological VTE Prophylaxis: Clinical assessment deems Pt at low risk, no prophalaxis needed
[2017-02-09] MEDS ORDERED: PHENOL 1.4% THROAT SPRAY 177 ML BOTTLE PO PRN (11:59)
[2017-02-10] MEDS: LACTATED RINGERS 1,000 ML IV SCH (07:58)
[2017-02-10] MEDS: METOCLOPRAMIDE 10 MG/2 ML VIAL IV SCH (08:35)
--- NOTE | 2017-02-10 10:12 | Progress Note ---
Assessment and Plan (1) Anemia Status: Acute Current Visit: No (2) Uterine fibroid Status: Acute Current Visit: No (3) Dysfunctional uterine bleeding Status: Acute Current Visit: No (4) Abdominal pain Status: Acute Assessment and plan: Dysfunction uterine bleeding, pelvic pain, anemia, known uterine fibroids, will plan on a SERENITY/BSO risks benefits were thoroughly discussed patient full agreement. Current Visit: No Family Medicine PN Sub Interval history: Status post SERENITY/BSO, with multiple adhesions, uterine fibroids adenomyosis Postoperatively she developed adynamic ileus, which required a nasogastric suction. Presently she has had a total of 5 bowel movements and is passing gas. She feels 100% better. We will discontinue her NG tube and advance her diet slowly. Possible discharge in a.m. if she tolerates her diet. Exam (Progress Note) - Constitutional Vitals: Period Temp Pulse Resp BP Sys/Ramos Pulse Ox Last 24 Hr 98.2 F-101.3 F 100-113 16-20 107-129/60-69 92-98 Results - Labs CBC & BMP: 02/07/17 05:27 02/05/17 14:40 Quality Measures - VTE Contraindication to Pharmacological VTE Prophylaxis: Clinical assessment deems Pt at low risk, no prophalaxis needed
--- NOTE | 2017-02-10 10:15 | Discharge Summary ---
Hospital Course - Hospital Course Hospital Course: Patient admitted with 6 increasing abdominal pain, dysfunction bleeding, multiple uterine fibroids. She underwent a transfusion of packed RBCs approximately less than a week ago. Patient continued to bleed and have severe pain. In light of these findings she was readmitted and prepare for SERENITY and BSO. Risks benefits thoroughly discussed she is in full agreement. Her postoperative course was complicated by a adynamic ileus on her second postoperative day. She received an NG tube which drained significantly, and also she had multiple bowel movements as well. She is tolerating her diet after the NG tube was removed and she will be discharged to follow my office in approximately 1 week. Diagnosis - Discharge Diagnosis (1) Anemia Status: Acute (2) Uterine fibroid Status: Acute (3) Dysfunctional uterine bleeding Status: Acute (4) Abdominal pain Status: Acute Discharge Plan - Discharge Data Condition at Discharge: Stable Discharge Diet: advance to your usual diet, high fiber diet Activity: increase activity as tolerated Hygiene: may shower Weight Bearing at Discharge: full weight bearing Driving: not until seen by doctor Contact your physician if you experience:: fever over 101, Bleeding - Discharge Medications New HYDROcodone/ACETAMIN 5-325 [[facility] 5-325] 1 tablet PO Q4H PRN #30 tablet PRN Reason: Pain Moderate (4-7) Ibuprofen Tab [Motrin Tab] 800 mg PO Q8H PRN #30 tablet PRN Reason: Pain Mild To Moderate (1-7) Discontinued Ferrous Sulfate Tab [Feosol Original Tab] 325 mg PO BID #60 tablet No Action oxyCODONE/ACETAMINOPHEN 5-325 [Percocet 5-325] 2 tablet PO Q6H PRN #30 tablet PRN Reason: Pain Moderate (4-7) - Follow Up or Referral - Forms/Instructions Exam - Constitutional Vitals: Period Temp Pulse Resp BP Sys/Ramos Pulse Ox Last 24 Hr 98.2 F-101.3 F 100-113 16-20 107-129/60-69 92-98 DS: Provider Date of admission: 02/05/17 14:09 Primary care physician: . No PCP Attending physician on admission: Germán Walker MD Discharging clinician: Germán Walker MD
[2017-02-11 08:40] VITALS: BP 109/66
== END 2017-02-11 12:30 | disposition home or self-care (01) | DRG 742 ==
LOC: N.OB → OBSVTOIN 14:09
PROVIDERS: ADMIT Obstetrics & Gynecology; ATTEND Obstetrics & Gynecology